=== PATIENT | male | born 1950 | race Caucasian/White ===

== ENCOUNTER 2019-06-22 10:41 | Day surgery (SDC) | payer MEDICARE, MEDICAID ==
[2019-06-17 12:11] LABS: BASOPHILS % (AUTO) 0.5 % (0-1); EOSINOPHILS # (AUTO) 0.1 X10'3 (0-0.9); EOSINOPHILS % (AUTO) 2.1 % (0-6); LYMPHOCYTES # (AUTO) 1.8 X10'3 (1.1-4.8); LYMPHOCYTES % (AUTO) 29.2 % (21-51); MEAN CORPUSCULAR HEMOGLOBIN 27.9 PG (27.0-31.0); MEAN CORPUSCULAR HGB CONC 33.5 g/dL (33.0-36.5); MEAN CORPUSCULAR VOLUME 83.3 FL (78-98); MEAN PLATELET VOLUME 7.5 FL (7.4-10.4); MONOCYTES # (AUTO) 0.8 X10'3 (0-0.9); MONOCYTES % (AUTO) 12.9 % (2-12); NEUTROPHILS # (AUTO) 3.3 X10'3 (1.8-7.7); NEUTROPHILS % (AUTO) 55.3 % (42-75); PRE OP HEMATOCRIT 40.7 % (42.0-52.0); PRE OP HEMOGLOBIN 13.6 g/dL (14.0-17.9); PRE OP PLATELET COUNT 346 X10'3 (140-440); RED BLOOD COUNT 4.89 X10'6 (4.70-6.10); RED CELL DISTRIBUTION WIDTH 14.4 % (11.5-14.5)
[2019-06-17 12:12] LABS: CLARITY,URINE CLEAR (Clear); COLOR,URINE YELLOW (Yellow); GLUCOSE, URINE NEGATIVE (Neg); KETONES,URINE NEGATIVE (Neg); LEUKOCYTE ESTERASE ,URINE NEGATIVE (Neg); NITRITES, URINE NEGATIVE (Neg); OCCULT BLOOD,URINE TRACE-INTACT (Neg); PH,URINE 5.5 (4.8-8.0); PROTEIN,URINE NEGATIVE (Neg); UROBILINOGEN,URINE 0.2 E.U/dL (0.2-1.0)
[2019-06-17 12:30] LABS: UA COLLECTION TYPE CLN CATCH MIDSTREAM
[2019-06-17 12:32] LABS: BACTERIA,URINE NONE SEEN /HPF (Neg); RBC,URINE 0-2 /HPF (0-2); SQUAMOUS EPITHELIAL CELL,UR NONE SEEN /LPF (FEW); WBC,URINE NONE SEEN /HPF (0-4)
[2019-06-17 12:32] LABS: ALBUMIN 3.6 G/DL (3.4-5.0); ALKALINE PHOSPHATASE 65 IU/L (46-116); BLOOD UREA NITROGEN 18 MG/DL (7-18); BUN/CREATININE RATIO 16.1 (5.4-32.0); CALCIUM 8.3 MG/DL (8.5-10.1); CHLORIDE 108 MMOL/L (99-107); CREATININE 1.12 MG/DL (0.60-1.10); PRE OP ALT 51 U/L (30-65); PRE OP ANION GAP 6 (8-16); PRE OP AST 27 U/L (10-37); PRE OP BILIRUB, TOTAL 0.2 MG/DL (0.0-1.0); PRE OP GLUCOSE 102 MG/DL (70-104); PRE OP POTASSIUM 4.2 MMOL/L (3.4-5.1); PRE OP SODIUM 143 MMOL/L (135-145); TOTAL CARBON DIOXIDE 28.7 MMOL/L (24-32); TOTAL PROTEIN 7.3 G/DL (6.4-8.2); eGFR 66 ML/MIN
[~2019-06-22] VITALS: Ht 177.8 cm; Wt 99.8 kg
[2019-06-22] VITALS (16 sets, daily range): BP systolic 120–159; BP diastolic 70–97
[~2019-06-22 10:41] MED LIST: ACET-2615 PO; DIPH-915 PO; cefazolin/dext.iso 2gm/100 ML IV ONE; famotidine 20mg tablet PO ONE; ringers solution, lacted 1,000 ML IV SCH
[2019-06-22] MEDS ORDERED: ringers solution, lacted 1,000 ML IV SCH (12:47)
[2019-06-22] MEDS ORDERED: ondansetron/PF 4mg/2ml inj IV PRN (12:50)
[2019-06-22] MEDS ORDERED: morphine 4 MG/ML inj SYRINge IV PRN ×2 (12:50)
[2019-06-22] MEDS ORDERED: proCHLORperazine 10 MG/2 ml inj IV PRN (12:50)
[2019-06-22] MEDS ORDERED: meperidine/PF 25mg/ml syringe IV PRN ×3 (12:50)
[2019-06-22] MEDS ORDERED: BUPIVAcaine/PF 2.5 mg/ml (0.25%) 30ml vial ONE (12:56)
[2019-06-22] MEDS ORDERED: LIDOcaine 1% 30ml preserv. free vial ONE (12:56)
[2019-06-22] MEDS ORDERED: midazolam 2 mg/2 ml injection ONE (13:19)
[2019-06-22] MEDS ORDERED: fentaNYL/PF 50MCG/1 ML 2ML syringe ONE (13:19)
[2019-06-22] MEDS ORDERED: propofol inj 20 ML IV ONE (13:33)
[2019-06-22] MEDS ORDERED: ketorolac trometh. 30mg/ml inj. ONE (13:33)
[2019-06-22] MEDS ORDERED: dexamethasone sod phosphate 4mg/ml inj. ONE (13:33)
[2019-06-22] MEDS ORDERED: ondansetron/PF 4mg/2ml inj ONE (13:33)
[2019-06-22] MEDS ORDERED: LIDOcaine 2% (20mg/ml) 5ml vial ONE (13:33)
--- NOTE | 2019-06-22 14:43 | NUR ---
Received from OR via [facility], accompanied by Anesthesiologist DR WALKER and report given by Anesthesiologist. PT VERY DROWSY, NO S/S OF DISCOMFORT/DISTRESS. ABDOMEN W/3 LAP SITES W/BANDAIDS CDI. Addendum: 06/22/19 at 1548 by Loretta Epperson RN Amended: Links added.
[2019-06-22] MEDS ORDERED: HYDROcodone/acetaminophen 5mg/325mg tablet PO ONE (15:15)
--- NOTE | 2019-06-22 17:13 | NUR ---
D/C INSTRUCTIONS GIVEN AND GONE OVER W/PT, PT VERBALIZES UNDERSTANDING, PT D/C VIA W/C TO PRIVATE VEHICLE W/O INCIDENT. Addendum: 06/22/19 at 1737 by Loretta Epperson RN Amended: Links added.
== END 2019-06-22 17:13 | disposition home or self-care (01) ==
LOC: PAS 10:41
PROVIDERS: ATTEND Surgery
DX: K40.90 Unilateral inguinal hernia, without obstruction or gangrene, not specified as recurrent (principal); K21.9 Gastro-esophageal reflux disease without esophagitis; I10 Essential (primary) hypertension; F41.9 Anxiety disorder, unspecified; E03.9 Hypothyroidism, unspecified; E78.5 Hyperlipidemia, unspecified; E66.01 Morbid (severe) obesity due to excess calories; Z68.32 Body mass index [BMI] 32.0-32.9, adult; Z79.899 Other long term (current) drug therapy; Z82.49 Family history of ischemic heart disease and other diseases of the circulatory system
CPT/HCPCS: 36415; 49650; 80053; 81001; 82948; 85025; 93005; C1781; J1100; J1885; J2001; J2250; J2405; J2704; J3010; J3490; A4215; A4618; J7120